=== PATIENT | female | born 1980 ===

== ENCOUNTER 2024-05-25 08:52 | Day surgery (SDC) | payer OTHER ==
[~2024-05-25 08:52] MED LIST: LEVOTHYROXINE75 MC1 PO; MAXIMUM D3325 MCG; MIRALAX17 GM
[2024-05-25] MEDS ORDERED: BUPIVACAINE HCL/MPF 0.5% 30ML VIAL ONE (10:06)
[2024-05-25] MEDS ORDERED: LIDOCAINE HCL 1%/EPINEPHRINE 20ML VIAL IJ ONE (10:06)
[2024-05-25] MEDS ORDERED: DIBUCAINE 30 GM TUBE ONE (10:06)
[2024-05-25] MEDS ORDERED: HEMOSTATIC MATRIX 1 KIT KIT TOP ONE (10:06)
[2024-05-25] MEDS ORDERED: CEFTRIAXONE SODIUM 2,000 MG VIAL ONE (10:07)
[2024-05-25] MEDS ORDERED: METRONIDAZOLE/SODIUM CHLORIDE 500 MG/100 ML PIGGYBACK IV ONE (10:07)
[2024-05-25] MEDS ORDERED: NEURONTIN300 MG PO (11:51)
[2024-05-25] MEDS ORDERED: COLACE100 MG PO (11:51)
[2024-05-25] MEDS ORDERED: TRAM1TAB98 PO (11:51)
== END 2024-05-25 15:00 | disposition home or self-care (01) ==
LOC: CIR.AMB 08:52
PROVIDERS: ATTEND Surgery
DX: K60.1 Chronic anal fissure (principal); K62.89 Other specified diseases of anus and rectum; Z88.6 Allergy status to analgesic agent; Z88.5 Allergy status to narcotic agent; K64.4 Residual hemorrhoidal skin tags; K62.4 Stenosis of anus and rectum; K59.4 Anal spasm
CPT/HCPCS: 46505; 46700; J0585